=== PATIENT | male | born 1965 | race Two or more races ===

== ENCOUNTER 2020-07-13 06:16 | Emergency (ER) | payer SELFPAY ==
[~2020-07-13] VITALS: Ht 182.9 cm; Wt 99.8 kg
[2020-07-13 13:45] VITALS: BP 153/96
== END 2020-07-13 13:47 | disposition home or self-care (01) ==
LOC: ER 06:16
DX: U07.1 COVID-19 (principal); J18.9 Pneumonia, unspecified organism; F41.9 Anxiety disorder, unspecified
CPT/HCPCS: 71045